=== PATIENT | male | born 1975 | race Caucasian/White ===

== ENCOUNTER 2016-03-22 17:56 | Emergency (ER) | payer MEDICAID, OTHER ==
[~2016-03-22] VITALS: Ht 162.6 cm; Wt 61.4 kg
[~2016-03-22 17:56] MED LIST: RISP3TAB3 PO
[2016-03-22] MEDS ORDERED: 0.9% Sodium Chloride 1,000 ML IV ONE ×2 (18:06→22:55)
--- NOTE | 2016-03-22 18:06 | ED.REPORT ---
HPI-Trauma Minor / Fall Date of Service Mar 22, 2016 ED Provider: Dr. Coleman Pt is a 40 year old male with a history of cocaine abuse who presents to the ED with concerns for self induced lacerations about his left hand. Pt is a difficult historian due to his altered mental status, but admits to meth use today. Pt's reports that she came home today and noticed that the pt was acting abnormally, and had blood covering his face. She then noticed that he has large lacerated on the back of his left hand. Pt admits to self inducing these lacerations with a hatchet. He has no other complaints Nursing Notes Stated Complaint: LACERATIONS ALL OVER HAND Chief Complaint: Laceration Nursing Notes Reviewed: Yes Allergies: Coded Allergies: morphine (Verified Allergy, Intermediate, Hallucinations, 09/24/11) Scheduled Cephalexin (Keflex) 500 Mg Capsule 500 MG PO TID Risperidone-Expunged Drug, Do Not Renew! (Risperidone-Expunged Drug, Do Not Renew!) 3 Mg Tablet 3 MG PO HS General Time Seen by MD: 18:05 Chief Complaint Laceration Hx Obtained From: Patient, Spouse Arrived By: Walk-in Onset Occurred: Just prior to arrival Context of Onset: Other (Meth use) Symptom Duration: Since onset Location: Hand left Quality: Painful Severity: Current: Moderate Severity: Maximum: Moderate Similar Sx Previous: Yes Past Medical History Past Medical History cocaine abuse Social History Drug Use: Cocaine Other Social History: Ambulatory Status Independent Review of Systems Unable to Obtain ROS Patient condition Constitutional: Denies: Chills, Fever, Malaise, Weakness - generalized Respiratory: Denies: Shortness of breath, Wheezing Musculoskeletal: Reports: Extremity pain, Denies: Back pain, Neck pain Neurologic: Denies: Abnormal movement, Change LOC, Headache, Seizure, Syncope, Weakness Complete sys rev & neg: except as marked. Physical Exam Initial Vital Signs Vital Signs (First) Date Time Temp Pulse Resp B/P Pulse Ox O2 Delivery O2 Flow Rate FiO2 03/22/16 18:38 37.2 122 18 96 Room Air 03/23/16 12:01 130/91 Initial VS: Reviewed ENT: Mucous membranes moist, Conjunctiva normal, No scleral icterus Respiratory: Breath sounds normal, Clear to auscultation, No respiratory distress Cardiovascular: Regular rate & rhythm, Heart sounds normal, Intact distal pulses Abdomen / GI: Soft, Non-tender, No guarding, No rebound, No distention Skin: Warm, Dry, No cyanosis General/Constitutional: Awake, Alert Agitated Neck: Atraumatic, Supple, Full range of motion Wrist / Hand: Neurologic intact, Vascular intact Trauma / Burn / Environmental: Positive: Laceration 3 laterations about the left wrist, see procedure for details Good capilary refill Interpretation & Diagnostics Lab Results Interpretation Result Diagram: 03/22/16 1821 03/22/16 1821 Test 03/22/16 18:21 03/22/16 19:34 03/22/16 19:35 03/23/16 00:45 White Blood Count 21.0th/mm3 (3.8-10.1) Red Blood Count 4.46mil/mm3 (4.40-5.80) Hemoglobin 13.9g/dL (13.8-17.2) Hematocrit 39.7% (41.0-50.0) Mean Corpuscular Volume 89.0fL (81-100) Mean Corpuscular Hemoglobin 31.2pg (27.0-35.0) Mean Corpuscular Hemoglobin Concent 35.0% (32.0-37.0) Red Cell Distribution Width 13.1% (12.3-15.4) Platelet Count 463bil/L (150-400) Neutrophils (%) (Auto) 86.0% (40-74) Lymphocytes (%) (Auto) 5.5% (14-46) Monocytes (%) (Auto) 8.0% (4-12) Eosinophils (%) (Auto) 0% (0-5) Basophils (%) (Auto) 0.2% (0-3) Sodium Level 141mEq/L (134-144) Potassium Level 4.5mEq/L (3.5-5.2) Chloride Level 100mEq/L (97-108) Carbon Dioxide Level 21mmol/L (18-29) Blood Urea Nitrogen 20mg/dL (6-20) Creatinine 1.00mg/dL (0.76-1.27) Estimat Glomerular Filtration Rate 88mL/min (>59) Glucose Level 87mg/dL (60-99) Calcium Level 10.0mg/dL (8.5-10.1) Total Bilirubin 0.5mg/dL (0.0-1.2) Aspartate Amino Transf (AST/SGOT) 70U/L (0-50) Alanine Aminotransferase (ALT/SGPT) 49U/L (0-44) Alkaline Phosphatase 111U/L (25-150) Total Protein 7.9g/dL (6.4-8.4) Albumin 4.6g/dL (3.4-5.0) Hold Orellana Top Tube Received (Received) Alcohol, Quantitative < 10mg/dL (0-10) Hold Blue Top Tube Received (Received) Hold Purple Top Tube Received (Received) Hold Red Top Tube Received (Received) Hold Thida Top Tube Received (Received) Hold Urine Received (Received) Lab Results Interpretation: CTA Left Hand/Wrist: IMPRESSION: No definitive arterial injuries although the examination is significantly limited due to motion artifacts in the area of interest. If clinical suspicion is high, a followup examination or arterial Doppler ultrasound may be helpful. Dictated by: J Carlos Alexander M.D. on 03/22/2016 at 20:54 ECG Interpretation ECG Interpretation: Tachy - [address] segment changes Time: 19:35 Interpreted by: ED physician X-Ray Interpretation Xray Interpretation: IMPRESSION: No fracture or dislocation. Soft tissue injury. Dictated by: J Carlos Alexander M.D. on 03/22/2016 at 19:02 X-Ray Ordered: Hand left Interpretation / Wet Read by: Interpret - Radiologist Procedures Laceration Management Time: 22:00 Procedure Performed by: ED resident Consent / Setup / Site Prep: No consent - emergent, Time-out performed, Hand hygiene observed, Stand sterile technique Location of Wound: Dorsum of left hand, just distal to radial carpal junction Wound Length: 5 cm Local Anesthesia: Lidocaine w epi 1% Wound Preparation: Normal saline Debridement: Yes Irrigation: Copious Foreign Body Explore / Removal: Explored for foreign body Repair Skin: ___ O (3), Vicryl # Sutures - Skin: 8 Suture Technique: Simple (Interrupted) Post-Procedure / Complications: No complications, Condition improved, Tolerated procedure well, Patient stable Time: 22:00 Procedure Performed by: ED resident Consent / Setup / Site Prep: No consent - emergent, Time-out performed, Hand hygiene observed, Stand sterile technique Location of Wound: Proximal to radial ulnar junction Wound Length: 4 cm Local Anesthesia: Lidocaine w epi 2% Wound Preparation: Normal saline Debridement: Yes Irrigation: Copious Foreign Body Explore / Removal: Explored for foreign body Repair Skin: ___ O (3), Vicryl # Sutures - Skin: 7 Suture Technique: Simple Post-Procedure / Complications: No complications, Condition improved, Tolerated procedure well, Patient stable Time: 22:00 Procedure Performed by: ED resident Consent / Setup / Site Prep: No consent - emergent, Time-out performed, Hand hygiene observed, Stand sterile technique Location of Wound: Lateral over the distal hadial head Wound Length: 4 cm Local Anesthesia: Lidocaine w epi 2% Wound Preparation: Normal saline Debridement: Yes Irrigation: Copious Foreign Body Explore / Removal: Explored for foreign body Repair Skin: ___ O (3), Vicryl # Sutures - Skin: 5 Repair Subcutaneous: ___ O (3), Vicryl Suture Technique: Simple Post-Procedure / Complications: No complications, Condition improved, Tolerated procedure well, Patient stable Re-Eval/Medical Decision Med Decision/Clinical Course 40-year-old male history of methamphetamine abuse presenting after taking a hatchet to his left wrist. Patient reports he was trying to hurt himself. His urine tox is positive for cocaine, PCP, methamphetamines. Leukocytosis 21,000. Alcohol is negative. CT angiogram left upper extremity with no evidence of arterial bleed. 3 lacerations repaired by resident Dr. Salazar. Neurovascularly intact status post repair. Good capillary refill less than 2 seconds left upper extremity posterior repair. Patient was given 7 mg of Ativan and still remained agitated. He was given 5 mg of Haldol. Patient be signed out to Dr. Abebe Black for sobering up and possible psych evaluation after shelton up. Assumed care at midnight from Dr. Dougie Black. Patient required additional sedation with Haldol and was slowly removed from his four point restraints. At this point, he is calm, reasonably cooperative, and should be amenable to evaluation this morning. Transferred at [address] Coleman. Source of Hx: Old records, Family Re-Evaluation/Progress #1: Time of Eval: 18:35 Re-Evaluation/Progress Note: Pt is rechecked and wound is explored. Re-Evaluation/Progress #2: Time of Eval: 23:25 Evaluation: Capillary refill normal Re-Evaluation/Progress Note: Pt is rechecked. Vitals remain stable Re-Evaluation/Progress #3: Time of Eval: 07:24 Re-Evaluation/Progress Note: Dr Coleman care assumed at 6 AM. Patient was heavily sedated and slept all night. Remains tachycardic in the 110-120 range with respiratory rate 18-20 range and saturations in the 96-98% range on room air On exam, significantly dry flashburn and lips. Heavily sedated, maintaining airway. Out of all restraints Dressing on left arm not removed Lungs are clear Safe to take him off the monitor at this point Moved back to room at P1, opened doors, 2 sitters available We will need further evaluation once he is more awake and can actually communicate given multiple wounds, done with hatchet, tenuous social situation, will add abx - keflex 500 TID for 7 days. Will give 2gm IV ceftriaxone now the d/c IV Re-Evaluation/Progress #4: Time of Eval: 17:30 Re-Evaluation/Progress Note: 03/25/16 Pt calls at 1730 today after reading through d/c instrustions. States none of these issues are true and is upset by dx of meth use. In reviewing urine tox, he was + for cocaine and - for methamphetamine. The reports of methamphetamine were verbal from meds. Have ammended documentation to state cocaine use/abuse rather than methamphetamine. Dr Coleman Counseled Regarding: Diagnosis, Lab results, Need for follow-up, When/why to return to ED Discharge & Departure Impression: Primary Impression: Multiple lacerations Additional Impressions: Self-inflicted injury Cocaine abuse Opiate use Disposition: Home Discharge Condition All VS Reviewed: Yes Condition: Stable Referrals: Sumit Paige MD (PCP) Care Transferred to: Dr. Wayne Coleman Care Transferred at: 06:37 Tamibe Attestation Portions of this note were transcribed by Ligia Kirkpatrick. I, Dr. Sadler personally performed the history, physical exam and medical decision-making; I reviewed and confirmed the accuracy of the information in the transcribed note. Signed by: Jim Regalado, 03/22/2016 [Time]. copies to: Sumit Paige MD, Ben M MD Mar 22, 2016 18:06 KEYSHA KIRKPATRICK Mar 22, 2016 18:10 Stepan Black MD Mar 23, 2016 06:38 Faviola Coleman MD Mar 23, 2016 07:30
[2016-03-22] MEDS ORDERED: TdaP Vaccine 0.5 mL Inj IM ONE (18:10)
[2016-03-22] MEDS ORDERED: Ondansetron 2 mg/mL 2 mL Inj IVPUSH ONE (18:10)
[2016-03-22 18:22] LABS: BASOPHILS % (AUTO) 0.2 % (0-3); EOSINOPHILS % (AUTO) 0 % (0-5); Mean Corpuscular Hemoglobin 31.2 pg (27.0-35.0); Platelet Count 463 bil/L (150-400)
[2016-03-22 18:38] VITALS: PULSE 122; RESP 18; O2SAT 96
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
[2016-03-22] MEDS: HYDROmorphone 1 mg/mL Inj IVPUSH PRN ×2 (19:05→20:06)
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
[2016-03-22] MEDS ORDERED: HYDROmorphone 1 mg/mL Inj IVPUSH ONE (21:10)
[2016-03-22] MEDS ORDERED: HYDROmorphone 1 mg/mL Inj IVPUSH PRN (22:55)
[2016-03-23] MEDS ORDERED: Haloperidol 5 mg/mL Inj IVPUSH ONE ×2 (00:20→02:20)
[2016-03-23 00:57] VITALS: PULSE 106; RESP 22; O2SAT 97
[2016-03-23] MEDS ORDERED: cefTRIAXone Inj 2,000 MG in IV Premix 1 EACH IV ONE (07:30)
[2016-03-23] MEDS ORDERED: CEPH-512 PO (11:57)
[2016-03-23 12:01] VITALS: BP 130/91; PULSE 113; O2SAT 97
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
== END 2016-03-23 12:22 | disposition home or self-care (01) ==
LOC: SED 17:56
DX: S61.412A Laceration without foreign body of left hand, initial encounter (principal); S61.512A Laceration without foreign body of left wrist, initial encounter; F14.10 Cocaine abuse, uncomplicated; F11.10 Opioid abuse, uncomplicated; X78.8XXA Intentional self-harm by other sharp object, initial encounter; Y93.89 Activity, other specified; Y99.8 Other external cause status; Y92.019 Unspecified place in single-family (private) house as the place of occurrence of the external cause; R00.0 Tachycardia, unspecified; Z23 Encounter for immunization; Z78.1 Physical restraint status; Z88.5 Allergy status to narcotic agent
CPT/HCPCS: 12005; 36415; 73110; 73206; 80053; 85025; 86850; 90471; 90715; 93005; 96361; 96365; 96375; 96376; 99285; G0480; J0696; J1170; J1200; J1630; J2060; J2405; J7030; Q9967

== ENCOUNTER 2016-03-25 18:13 | Emergency (ER) | payer OTHER ==
[~2016-03-25] VITALS: Ht 172.7 cm; Wt 69.1 kg
[~2016-03-25 18:13] MED LIST changes: +CEPH-512 PO
[2016-03-25 18:16] VITALS: BP 163/93; PULSE 93; RESP 18; O2SAT 98
--- NOTE | 2016-03-25 18:36 | ED.REPORT ---
HPI-General Illness Date of Service Mar 25, 2016 ED Provider: Dr. Valenzuela Pt is a 40 year old male with a hx of cocaine abuse presenting to the ED for a recheck of a wound on his left arm. The pt was seen in the ER 3 days ago for altered mental status and self inflicted left arm injury. Evidently when he was seen in the emergency department his drug screen trip positive for multiple things. He tells me today that he does not abuse any drugs whatsoever and he would like to have a repeat drug screen. He states that he is sober today. He is otherwise doing well. He has no intents of self injury. He has felt some insomnia however he has not had any suicidal or homicidal ideations. Nursing Notes Stated Complaint: L ARM Chief Complaint: General Complaint Nursing Notes Reviewed: Yes Allergies: Coded Allergies: morphine (Verified Allergy, Intermediate, Hallucinations, 09/24/11) Scheduled Cephalexin (Keflex) 500 Mg Capsule 500 MG PO TID Risperidone-Expunged Drug, Do Not Renew! (Risperidone-Expunged Drug, Do Not Renew!) 3 Mg Tablet 3 MG PO HS General Time Seen by MD: 18:36 Chief Complaint Laceration Hx Obtained From: Patient Arrived By: Walk-in Sudden in Onset?: Yes Onset Occurred: 3 days ago Symptom Duration: Since onset Caused by: Blunt trauma Location: : Arm left Quality: Painful Severity: Current: Mild Severity: Maximum: Mild Recent Healthcare: No recent hospitalization, Recent doctor visit Similar Sx Previous: No Past Medical History Past Medical History cocaine abuse Past Surgical History denies Social History Drug Use: Cocaine Other Social History: Ambulatory Status Independent Review of Systems Full Review of Systems Constitutional: Denies: Fever GI: Denies: Abdominal pain, Nausea, Vomiting Musculoskeletal: Reports: Extremity pain (Left arm) Psychiatric: Reports: Insomnia Complete sys rev & neg: except as marked. Physical Exam Vital Signs Vital Signs Date Time Temp Pulse Resp B/P Pulse Ox O2 Delivery O2 Flow Rate FiO2 03/25/16 20:06 36.7 89 18 156/98 96 Room Air 03/25/16 18:16 37 93 18 163/93 98 Room Air Initial VS: Reviewed General/Constitutional: Well-developed, Well-nourished Head / Eyes: Atraumatic, Normocephalic, PERRL ENT: Mucous membranes moist, Conjunctiva normal, No scleral icterus Respiratory: Breath sounds normal, Clear to auscultation, No respiratory distress Cardiovascular: Regular rate & rhythm, Heart sounds normal, Intact distal pulses Abdomen / GI: Soft, Non-tender, No guarding, No rebound, No distention Skin: Warm, Dry, No cyanosis Neurologic: Alert, Oriented, Nonfocal Psychiatric: Mood/affect normal, Behavior normal, Normal thought content Upper Extremities Upper Extremity / MS: Neurologic intact, Vascular intact Changed left arm splint. Some swelling of dorsal aspect of left wrist. 3 lacerations on left arm healing well. No sign of infection. No wrist drop. Some weakness with extension of left wrist digits 2,3 and 4. Mild thumb extension. Diminished 2 point dorsal aspect of left thumb. Interpretation & Diagnostics Lab Results Interpretation Test 03/25/16 18:51 Hold Urine Received (Received) Re-Eval/Medical Decision Med Decision/Clinical Course The wound looks good. I am suspicious that he has lacerated some tendons or even muscle bellies. We replaced the splint and sterile dressing. I want him to continue the Keflex. A short course of Lincoln was prescribed for pain. I do recommend close outpatient follow-up. No suicidal or homicidal ideations and he seems sober and lucid. He does agree to return if he has any problems. He assures me that he will not abuse any drugs will taking the Lincoln. Time of Eval: 19:30 Patient Status: Condition improved Re-Evaluation/Progress Note: Resplinted the left arm. Discussed plan for discharge. Pt understands and agrees with plan. Counseled Regarding: Diagnosis, Lab results, Need for follow-up, When/why to return to ED Discharge & Departure Shift Change Sign-Out Response to Therapy: Improved Primary Impression: Multiple lacerations Disposition: Home Discharge Condition All VS Reviewed: Yes Condition: Improved Patient Instructions: Laceration (ED), Splint Care (ED) Additional Instructions: I'm concerned this may be a tendon injury. Follow up with Dr. Levin, orthopedist , for evaluation within 10 days of the injury. Call Monday to set this up. Elevate your hand as much as possible. Have the stitches removed at about 2 weeks from the injury time. Take 1-2 Lincoln every 6 hours as needed for pain. Do not use any other drugs or consume alcohol or acetaminophen or drive while taking Lincoln. The wound needs to be evaluated next week. It is important that you are seen in follow-up. Referrals: [facility] (PCP) Stepan Levin MD Attestation Portions of this note were transcribed by Noreen Pond. I, Dr. Valenzuela personally performed the history, physical exam and medical decision-making; I reviewed and confirmed the accuracy of the information in the transcribed note. Signed by : Jim Geller, 03/25/2016 and 1948. copies to: [facility]; Stepan Levin MD, Todd P DO Mar 25, 2016 18:36 NOREEN POND Mar 25, 2016 19:05
[2016-03-25] MEDS ORDERED: HYDROcodone-APAP 5-325 mg Tablet PO ONE (19:10)
[2016-03-25 20:06] VITALS: BP 156/98; PULSE 89; RESP 18; O2SAT 96
== END 2016-03-25 20:07 | disposition home or self-care (01) ==
LOC: SED 18:13
DX: S61.512D Laceration without foreign body of left wrist, subsequent encounter (principal); X78.8XXD Intentional self-harm by other sharp object, subsequent encounter; Y93.9 Activity, unspecified; Y99.8 Other external cause status; Y92.9 Unspecified place or not applicable; F17.210 Nicotine dependence, cigarettes, uncomplicated